=== PATIENT | female | born 1965 | race Caucasian/White ===

== ENCOUNTER 2018-07-22 05:23 | Emergency (ER) | payer OTHER ==
--- NOTE | 2018-07-22 05:31 | ER Report ---
History and Physical Time Seen By MD: 05:31 Hx. of Stated Complaint: PT REPORTS LOWER RIGHT BACK PAIN AROUND 02:00 THAT HAS ROTATED TO ABDOMEN. PT REPORTS VOMITING. (TAI WAGNER MD) HPI/ROS CHIEF COMPLAINT: Abdominal pain HISTORY OF PRESENT ILLNESS: This is a 53-year-old female. She is having right-sided abdominal pain. Seemed like it started around her right side and into her back and now more in the abdomen. It's worse in the right lower quadrant of the abdomen. Any movement or pressure in the right lower abdomen causes increased pain. Nothing she does makes it better or worse other than this. She denies any dysuria or urinary frequency. She does feel a lot of pressure and feels like she needs to have a bowel movement but cannot. No fevers but has felt some chills. No history of abdominal surgeries other than tubal ligation in the past. She is not short of breath. She denies any chest pain. She has been having vomiting. (TAI WAGNER MD) Allergies: Coded Allergies: No Known Drug Allergies (Unverified , 07/22/18) Home Meds No Active Prescriptions or Reported Meds Reviewed Nurses Notes: Yes (TAI WAGNER MD) Constitutional Vital Sign - Last 24 Hours 07/22/18 07/22/18 07/22/18 07/22/18 05:27 05:28 05:30 05:53 Temp 97.5 Pulse 60 67 Resp 16 B/P (MAP) 107/61 107/61 (76) 107/83 (91) Pulse Ox 100 95 O2 Delivery Room Air 07/22/18 07/22/18 06:00 06:32 B/P (MAP) 104/71 (82) 119/94 (102) (YEISON FRY MD) Physical Exam General Appearance: The patient is alert. Acute distress because of pain. Eyes: Pupils are equal, round. No pallor, injection or icterus. ENT: Mucous membranes are moist. Normal oral mucosa. Posterior oropharynx is normal. Neck: Supple and non tender. Respiratory: Lungs are clear to auscultation. Cardiovascular: Regular rate and rhythm. No murmurs, gallops or rubs. Normal capillary refill. Gastrointestinal: Abdomen is soft, very tender in the right lower quadrant with guarding and question of rebound. Nondistended. Normal active bowel sounds. No costovertebral angle tenderness with percussion. Neurological: Alert and oriented x3. No focal neurologic deficits. Skin: Warm and dry. Musculoskeletal: No tenderness in palpation of the cervical, thoracic and lumbar spine. DIFFERENTIAL DIAGNOSIS: After history and physical exam, differential diagnosis was considered for abdominal pain including but not limited to appendicitis, ch olecystitis, colitis, kidney stones and urinary tract infection. ([facility]) Medical Decision Making Data Points Result Diagram: 07/22/18 0552 07/22/18 0552 Laboratory Hematology Test 07/22/18 05:52 07/22/18 07:45 Red Blood Count 4.56 M/uL (4.17-5.56) Mean Corpuscular Volume 90.6 fL (80.0-96.0) Mean Corpuscular Hemoglobin 30.8 pg (26.0-33.0) Mean Corpuscular Hemoglobin Concent 34.0 g/dL (32.0-36.0) Red Cell Distribution Width 12.5 % (11.5-14.5) Mean Platelet Volume 7.5 fL (7.2-11.1) Neutrophils (%) (Auto) 90.4 % (39.4-72.5) Lymphocytes (%) (Auto) 5.4 % (17.6-49.6) Monocytes (%) (Auto) 3.3 % (4.1-12.4) Eosinophils (%) (Auto) 0.4 % (0.4-6.7) Basophils (%) (Auto) 0.5 % (0.3-1.4) Nucleated RBC Relative Count (auto) 0.0 /100WBC Neutrophils # (Auto) 10.7 K/uL (2.0-7.4) Lymphocytes # (Auto) 0.6 K/uL (1.3-3.6) Monocytes # (Auto) 0.4 K/uL (0.3-1.0) Eosinophils # (Auto) 0.0 K/uL (0.0-0.5) Basophils # (Auto) 0.1 K/uL (0.0-0.1) Nucleated RBC Absolute Count (auto) 0.00 K/uL Sodium Level 138 mmol/L (137-145) Potassium Level 3.3 mmol/L (3.5-5.0) Chloride Level 106 mmol/L (98-107) Carbon Dioxide Level 23 mmol/L (22-31) Blood Urea Nitrogen 19 mg/dl (7-18) Creatinine 0.80 mg/dl (0.52-1.04) Glomerular Filtration Rate Calc > 60.0 Random Glucose 115 mg/dl (75-110) Calcium Level 9.5 mg/dl (8.4-10.2) Total Bilirubin 1.0 mg/dl (0.2-1.3) Aspartate Amino Transf (AST/SGOT) 27 U/L (0-35) Alanine Aminotransferase (ALT/SGPT) 27 U/L (0-56) Alkaline Phosphatase 46 U/L (0-126) Total Protein 7.3 g/dl (6.3-8.2) Albumin 4.2 g/dl (3.5-5.0) Amylase Level 72 U/L (0-110) Lipase 143 U/L (23-300) Urine Color Yellow Urine Clarity Slightly-cloudy Urine pH 5.0 pH (4.8-9.5) Urine Specific Lorimor 1.050 Urine Protein Negative mg/dL (NEGATIVE) Urine Glucose (UA) Negative mg/dL (NEGATIVE) Urine Ketones Trace mg/dL (NEGATIVE) Urine Blood Large (NEGATIVE) Urine Nitrite Negative (NEGATIVE) Urine Bilirubin Negative (NEGATIVE) Urine Urobilinogen Negative mg/dL (0.2-1.9) Urine Leukocyte Esterase Negative (NEGATIVE) Urine RBC 55 /HPF (0-2/HPF) Urine WBC 6 /HPF (0-5/HPF) Urine Squamous Epithelial Cells None /LPF (</=FEW) Urine Transitional Epithelial Cells Moderate /LPF (NONE-FEW) Urine Bacteria Moderate /HPF (NONE-FEW) Urine Mucus Few /HPF (NONE-FEW) Chemistry Test 07/22/18 05:52 07/22/18 07:45 White Blood Count 11.9 k/uL (4.5-11.0) Red Blood Count 4.56 M/uL (4.17-5.56) Hemoglobin 14.0 g/dL (12.0-16.0) Hematocrit 41.3 % (34.0-47.0) Mean Corpuscular Volume 90.6 fL (80.0-96.0) Mean Corpuscular Hemoglobin 30.8 pg (26.0-33.0) Mean Corpuscular Hemoglobin Concent 34.0 g/dL (32.0-36.0) Red Cell Distribution Width 12.5 % (11.5-14.5) Platelet Count 276 K/uL (150-450) Mean Platelet Volume 7.5 fL (7.2-11.1) Neutrophils (%) (Auto) 90.4 % (39.4-72.5) Lymphocytes (%) (Auto) 5.4 % (17.6-49.6) Monocytes (%) (Auto) 3.3 % (4.1-12.4) Eosinophils (%) (Auto) 0.4 % (0.4-6.7) Basophils (%) (Auto) 0.5 % (0.3-1.4) Nucleated RBC Relative Count (auto) 0.0 /100WBC Neutrophils # (Auto) 10.7 K/uL (2.0-7.4) Lymphocytes # (Auto) 0.6 K/uL (1.3-3.6) Monocytes # (Auto) 0.4 K/uL (0.3-1.0) Eosinophils # (Auto) 0.0 K/uL (0.0-0.5) Basophils # (Auto) 0.1 K/uL (0.0-0.1) Nucleated RBC Absolute Count (auto) 0.00 K/uL Glomerular Filtration Rate Calc > 60.0 Calcium Level 9.5 mg/dl (8.4-10.2) Total Bilirubin 1.0 mg/dl (0.2-1.3) Aspartate Amino Transf (AST/SGOT) 27 U/L (0-35) Alanine Aminotransferase (ALT/SGPT) 27 U/L (0-56) Alkaline Phosphatase 46 U/L (0-126) Total Protein 7.3 g/dl (6.3-8.2) Albumin 4.2 g/dl (3.5-5.0) Amylase Level 72 U/L (0-110) Lipase 143 U/L (23-300) Urine Color Yellow Urine Clarity Slightly-cloudy Urine pH 5.0 pH (4.8-9.5) Urine Specific Lorimor 1.050 Urine Protein Negative mg/dL (NEGATIVE) Urine Glucose (UA) Negative mg/dL (NEGATIVE) Urine Ketones Trace mg/dL (NEGATIVE) Urine Blood Large (NEGATIVE) Urine Nitrite Negative (NEGATIVE) Urine Bilirubin Negative (NEGATIVE) Urine Urobilinogen Negative mg/dL (0.2-1.9) Urine Leukocyte Esterase Negative (NEGATIVE) Urine RBC 55 /HPF (0-2/HPF) Urine WBC 6 /HPF (0-5/HPF) Urine Squamous Epithelial Cells None /LPF (</=FEW) Urine Transitional Epithelial Cells Moderate /LPF (NONE-FEW) Urine Bacteria Moderate /HPF (NONE-FEW) Urine Mucus Few /HPF (NONE-FEW) Urinalysis Test 07/22/18 07:45 Urine Color Yellow Urine Clarity Slightly-cloudy Urine pH 5.0 pH (4.8-9.5) Urine Specific Lorimor 1.050 Urine Protein Negative mg/dL (NEGATIVE) Urine Glucose (UA) Negative mg/dL (NEGATIVE) Urine Ketones Trace mg/dL (NEGATIVE) Urine Blood Large (NEGATIVE) Urine Nitrite Negative (NEGATIVE) Urine Bilirubin Negative (NEGATIVE) Urine Urobilinogen Negative mg/dL (0.2-1.9) Urine Leukocyte Esterase Negative (NEGATIVE) Urine RBC 55 /HPF (0-2/HPF) Urine WBC 6 /HPF (0-5/HPF) Urine Squamous Epithelial Cells None /LPF (</=FEW) Urine Transitional Epithelial Cells Moderate /LPF (NONE-FEW) Urine Bacteria Moderate /HPF (NONE-FEW) Urine Mucus Few /HPF (NONE-FEW) (YEISON FRY MD) ED Course/Re-evaluation Clinical Indication for ER IV: Hydration, IV Access (BERNARDTAI KIRK MD) [place] Course I t/[place] [address]; initial ct read indicated poss kidney infection and uterine mass. UA pending; at this point I initiated rocephin. However, ua returns without sgs of infection but with rbc's. I called to review CT with radiologist at 0820; he agrees no sgs of infection; notes stone in bladder that is c/w recently passed stone; this would account for pt's symptoms and improvement. He also notes that uterine finding is c/w meiobian cyst; I discussed this with pt. Ultimately, as pt is improved but we do not have definite diagnosis, I recommend immediate return for worsening symptoms. At this time, pt tolerating po, comfortable to discharge, and agrees to rtn for concerning symptoms. Decision to Disposition Date: Jul 22, 2018 Decision to Disposition Time: 08:22 (YEISON FRY MD) Depart Departure Latest Vital Signs Vital Signs Date Time Temp Pulse Resp B/P (MAP) Pulse Ox O2 Delivery O2 Flow Rate FiO2 07/22/18 06:32 119/94 (102) 07/22/18 05:53 67 95 07/22/18 05:27 97.5 16 Room Air (YEISON FRY MD) Impression: Primary Impression: Abdominal pain Additional Impressions: Hematuria Uterine cyst Condition: Improved Disposition: HOME OR SELF-CARE New Scripts No Active Prescriptions or Reported Meds Patient Instructions: Abdominal Pain (ED) Additional Instructions: As we discussed, we see a stone in your bladder which may have caused your pain, but which should no longer cause pain. While this may not have been the cause of your symptoms, I recommend you return immediately if worse, or in 12-24 hours for recheck if you still have concerning pain or develop new symptoms. Please follow up with your primary doctor for re-evaluation. Problem Qualifiers Primary Impression: Abdominal pain Abdominal location: upper abdomen, unspecified Qualified Codes: R10.10 - Upper abdominal pain, unspecified Additional Impressions: Hematuria Hematuria type: other microscopic Qualified Codes: R31.29 - Other microscopic hematuria TAI WAGNER MD Jul 22, 2018 05:31 YEISON FRY MD Jul 22, 2018 08:25
[2018-07-22] MEDS ORDERED: NS(*) 0.9% 1000 ML BAG 1,000 ML IV ONE ×2 (05:38→07:30)
[2018-07-22] MEDS ORDERED: ONDANSETRON 4 MG/2 ML VIAL IVP ONE (05:40)
[2018-07-22] MEDS ORDERED: HYDROMORPHONE HCL 1 MG/ML SYRINGE IVP ONE (05:40)
[2018-07-22] MEDS ORDERED: IOPAMIDOL 76% 75 ML INFUS BTL 75 ML ONE (05:59)
[2018-07-22 06:01] LABS: PLATELET COUNT, AUTOMATED 276 K/uL (150-450)
--- NOTE | 2018-07-22 07:08 | RADIOLOGY IMAGING REPORT ---
FACILITY: [facility] PATIENT NAME: Christina Simental : 1965 MR: [id number] V: [id number] EXAM DATE: ORDERING PHYSICIAN: TAI WAGNER TECHNOLOGIST: Location: [facility] - [place] Patient: Christina Simental : 1965 Visit/Account:[id number] Date of Sevice: 07/22/2018 ADDENDUM #1 The examination was reviewed with Dr. Chaudhry. There is a 2 mm calculus layering posteriorly within the left aspect of the urinary bladder. Given t he minimal right hydronephrosis and mild right urothelial enhancement this is most consistent with a recently passed stone. Report Dictated By: Lio Feliciano MD at 07/22/2018 8:18 AM Report E-Signed By: Lio Feliciano MD at 07/22/2018 8:20 AM ORIGINAL REPORT EXAMINATION: CT abdomen with IV contrast CT pelvis with IV contrast HISTORY: Abdominal pain. TECHNIQUE: Spiral scan was through the abdomen and pelvis during injection of nonionic iodinated in travenous contrast. Sagittal and coronal reformatted images are also submitted. One of the following dose optimization techniques was utilized in the performance of this exam: Autom ated exposure control; adjustment of the mA and/or kV according to the patient's size; or use of an i terative reconstruction technique. Specific details can be referenced in the facility's radiology C T exam operational policy. CONTRAST: 75 mL of IV [id number] COMPARISON: None available. FINDINGS: Lower chest: Negative. Liver / biliary: Negative. Pancreas: Negative. Spleen: Negative. Adrenal glands: Negative. Kidneys: Asymmetric right urothelial enhancement with surrounding fat stranding. Questionable mild ri ght hydronephrosis. No definite evidence of pyelonephritis. No evidence of obstructing stone or mass. No abscess. Pelvic structures: Retroverted uterus. 2.4 x 2.2 x 1.6 cm hypodensity in the cervix. 2 cm cyst in the right ovary. Bowel: Negative. Peritoneum / retroperitoneum / mesenteries: Negative. Vessels: Negative. Lymph nodes: Negative. Musculoskeletal / Body wall: Mild degenerative changes in the spine. IMPRESSION: 1. Asymmetric right urothelial enhancement with surrounding fat stranding suspicious for urinary trac t infection. Questionable mild right hydronephrosis with no evidence of obstructing stone or mass. No definite evidence of pyelonephritis. No abscess. 2. 2.4 x 2.2 x 1.6 cm hypodensity in the cervix. Pelvic ultrasound is recommended to make sure this i s not a tumor. Report Dictated By: Bishop Fernandez MD at 07/22/2018 6:50 AM Report E-Signed By: Bishop Fernandez MD at 07/22/2018 7:04 AM [id number]
--- NOTE | 2018-07-22 07:10 | RADIOLOGY IMAGING REPORT ---
FACILITY: [facility] PATIENT NAME: Christina Simental : 1965 MR: [id number]: [id number] EXAM DATE: ORDERING PHYSICIAN: TAI WAGNER TECHNOLOGIST: Location: [facility] - [place] Patient: Christina Simental : 1965 Visit/Account:[id number] Date of Sevice: 07/22/2018 LUMBAR SPINE 4 VIEWS INDICATION: Low back pain. COMPARISON: None available. FINDINGS: 4 views including AP, lateral, and bilateral oblique. 3 mm of retrolisthesis of L2 over L3. Minimal convex rightward curvature. Otherwise normal alignment. Small disc osteophytes at a few levels with relatively preserved disc height. Normal vertebral body height. No pars defects. IMPRESSION: Mild multilevel degenerative disc disease with 3 mm of retrolisthesis of L2 over L3 and m inimal convex rightward curvature. Report Dictated By: Bishop Fernandez MD at 07/22/2018 7:04 AM Report E-Signed By: Bishop Fernandez MD at 07/22/2018 7:06 AM [id number]
[2018-07-22] MEDS ORDERED: cefTRIAXone(*) 1 GM VIAL 1 GM in NS(*) 0.9% 100 ML ADDVANT BAG 100 ML IVPB ONE (07:30)
[2018-07-22 08:36] VITALS: BP 103/61
== END 2018-07-22 09:05 | disposition home or self-care (01) ==
LOC: ER 05:27
DX: R10.31 Right lower quadrant pain (principal); N85.8 Other specified noninflammatory disorders of uterus; R31.29 Other microscopic hematuria
CPT/HCPCS: 36415; 72120; 74177; 81001; 82040; 82150; 82247; 82310; 82374; 82435; 82565; 82947; 83690; 84075; 84132; 84155; 84295; 84450; 84460; 84520; 85025; 96361; 96365; 96375; 99284; J0696; J1170; J2405; J7030; J7050; Q9967